=== PATIENT | male | born 1945 ===

== ENCOUNTER 2023-05-18 15:44 | Inpatient (IN) ==
[2023-05-18] MEDS ORDERED: Morphine 2 MG/ML SYRINGE IV PRN (21:15)
[2023-05-18] MEDS ORDERED: Naloxone 0.4 mg VIAL 0.4 mg/ml 1 ml VIAL IV PUSH PRN (21:17)
[2023-05-18] MEDS: Acetaminophen IV 1 GM/100ML 1,000 MG/100 ML BAG IV SCH (21:57)
[2023-05-18] MEDS ORDERED: Heparin 5000 UNITS/ML 1 mL VIAL SUBCUT SCH (22:00)
[2023-05-18] MEDS ORDERED: Lactated Ringers 1000 ml BAG 1,000 ML IV ONE (22:30)
[2023-05-18 22:46] LABS: ABS Basophils 0.1 10^3/uL (0.0-0.1); ABS Eosinophils 0.5 10^3/uL (0.0-0.5); ABS Lymphocytes 2.2 10^3/uL (1.0-4.8); ABS Monocytes 0.7 10^3/uL (0.0-1.1); ABS Neutrophils 3.7 10^3/uL (1.5-7.6); Eosinophil % 6.6 %; Hematocrit 30.7 % (38-53); Lymphocyte % 30.9 %; Mean Corpuscular Hemoglobin 30.2 pg (27-33); Mean Corpuscular Hgb Conc 35.9 g/dL (31-36); Mean Corpuscular Volume 84.1 fL (80-97); Mean Platelet Volume 7.3 fL (7.5-11.2); Platelet Count 182 10^3/uL (150-450); Red Blood Count 3.65 10^6/uL (4.06-5.63); Red Cell Distribution Width 14.7 % (12-17); White Blood Count 7.2 10^3/uL (3.6-10.2)
[2023-05-18 22:51] LABS: INR 1.02 (0.83-1.13)
[2023-05-18 23:02] LABS: Albumin 3.7 g/dL (3.2-5.2); Albumin/Globulin Ratio 1.5 (1-3); C Reactive Protein 6.56 mg/L (<8.01); Calcium 8.6 mg/dL (8.6-10.3); Creatinine, Serum 1.28 mg/dL (0.67-1.17); Globulin 2.5 g/dL (2-4); Potassium 3.7 mmol/L (3.5-5.0); Total Bilirubin 0.4 mg/dL (0.2-1.0); Total Protein 6.2 g/dL (6.4-8.9); eGFR CKD-EPI 56.9 (>60)
[2023-05-19] MEDS ORDERED: Lactated Ringers 1000 ml BAG 1,000 ML IV ONE (00:23)
[2023-05-19] MEDS: Acetaminophen IV 1 GM/100ML 1,000 MG/100 ML BAG IV SCH ×3 (07:00→19:52)
[2023-05-19] MEDS: CMCS: Dorzolamide/Timolol OPTH (NF) 10 ML BOT BOTH EYES SCH ×2 (08:44→21:36)
[2023-05-19] MEDS ORDERED: Dutasteride/Tamsulosin (NF) PO SCH (09:00)
[2023-05-19] MEDS: Polyethylene Glycol 3350 17 GM PACKET PO SCH (09:00)
[2023-05-19] MEDS: Senna TAB 8.6 mg TAB PO SCH (21:33)
[2023-05-19] MEDS: Latanoprost 0.005% 2.5 ml BTL BOTH EYES SCH (21:38)
[2023-05-20] MEDS: Acetaminophen IV 1 GM/100ML 1,000 MG/100 ML BAG IV SCH ×4 (03:08→21:54)
[2023-05-20 06:14] LABS: Hematocrit 34.8 % (38-53); Hemoglobin 12.3 g/dL (13.2-16.3); Mean Corpuscular Hemoglobin 29.3 pg (27-33); Mean Corpuscular Hgb Conc 35.3 g/dL (31-36); Mean Corpuscular Volume 82.8 fL (80-97); Mean Platelet Volume 7.3 fL (7.5-11.2); Platelet Count 218 10^3/uL (150-450); Red Cell Distribution Width 14.5 % (12-17); White Blood Count 7.1 10^3/uL (3.6-10.2)
[2023-05-20 06:18] LABS: INR 1.08 (0.83-1.13)
[2023-05-20 06:41] LABS: Calcium 8.4 mg/dL (8.6-10.3); Potassium 3.2 mmol/L (3.5-5.0); eGFR CKD-EPI 76.6 (>60)
[2023-05-20] MEDS: KCL 20 MEQ/100 ML IVPREMIX 20 MEQ/100 ML BAG IV SCH ×3 (07:46→15:57)
[2023-05-20] MEDS: Polyethylene Glycol 3350 17 GM PACKET PO SCH (08:34)
[2023-05-20] MEDS: CMCS: Dorzolamide/Timolol OPTH (NF) 10 ML BOT BOTH EYES SCH ×2 (08:37→20:36)
[2023-05-20] MEDS ORDERED: ceFAZolin 2 GM PREMIX 2 GM/50 ML BAG ONE (11:48)
[2023-05-20] MEDS ORDERED: Naloxone 0.4 mg VIAL 0.4 mg/ml 1 ml VIAL IV PRN (12:39)
[2023-05-20] MEDS ORDERED: fentaNYL 100 mcg/2 ml 50 MCG/ML VIAL IV PRN (12:39)
[2023-05-20] MEDS ORDERED: Midazolam 2 mg/2 ml VIAL 1 mg/ml 2 ml VIAL (2 mg) ONE (13:00)
[2023-05-20] MEDS ORDERED: fentaNYL 100 mcg/2 ml 50 MCG/ML VIAL ONE ×2 (13:00→14:59)
[2023-05-20] MEDS ORDERED: Propofol 10 MG/ML 20 ML BTL ONE ×2 (13:01→13:02)
[2023-05-20] MEDS ORDERED: Lidocaine 2% PF 5 ML VIAL ONE (13:01)
[2023-05-20] MEDS ORDERED: Rocuronium 50 mg VIAL 10 mg/ml 5 ml VIAL (50 mg) ONE (13:02)
[2023-05-20] MEDS ORDERED: Phenylephrine 40 mcg/mL 10mL (400mcg) SYRINGE ONE (13:26)
[2023-05-20] MEDS ORDERED: Bupivacaine 0.5% SDV PF 30ML VIAL ONE (13:28)
[2023-05-20] MEDS ORDERED: Phenylephrine IV 10 MG/ML 1 ml VIAL ONE (13:36)
[2023-05-20] MEDS ORDERED: Ondansetron 4 mg VIAL 2 MG/ML 2 ml VIAL ONE (13:47)
[2023-05-20 15:05] LABS: Hematocrit 30.8 % (38-53); Hemoglobin 10.8 g/dL (13.2-16.3)
[2023-05-20] MEDS ORDERED: Morphine 2 MG/ML SYRINGE IV PRN (16:21)
[2023-05-20] MEDS ORDERED: Lactated Ringers 1000 ml BAG 500 ML IV ONE (16:30)
[2023-05-20] MEDS ORDERED: Ondansetron 4 mg VIAL 2 MG/ML 2 ml VIAL IV PRN (17:56)
[2023-05-20] MEDS: Latanoprost 0.005% 2.5 ml BTL BOTH EYES SCH (20:36)
[2023-05-20] MEDS: Senna TAB 8.6 mg TAB PO SCH ×2 (20:37→20:40)
[2023-05-20] MEDS: ceFAZolin 1 GM in Dextrose 1 GM/50 ML BAG IVPB SCH (20:45)
[2023-05-20] MEDS: Benzocaine (plain) Lozenge 15 MG MT PRN (21:55)
[2023-05-21] MEDS: Polyethylene Glycol 3350 17 GM PACKET PO SCH ×2 (06:53→08:40)
[2023-05-21] MEDS: ceFAZolin 1 GM in Dextrose 1 GM/50 ML BAG IVPB SCH ×2 (07:17→12:40)
[2023-05-21 07:46] LABS: Hematocrit 29.6 % (38-53); Hemoglobin 10.4 g/dL (13.2-16.3); Platelet Count 204 10^3/uL (150-450)
[2023-05-21 08:03] LABS: Creatinine, Serum 1.4 mg/dL (0.67-1.17); Potassium 4.6 mmol/L (3.5-5.0); eGFR CKD-EPI 51.1 (>60)
[2023-05-21] MEDS: CMCS: Dorzolamide/Timolol OPTH (NF) 10 ML BOT BOTH EYES SCH ×2 (08:50→20:56)
[2023-05-21] MEDS: Enoxaparin 40 MG/0.4 ML SYR SUBCUT SCH (12:10)
[2023-05-21] MEDS: Benzocaine (plain) Lozenge 15 MG MT PRN ×2 (14:36→20:53)
[2023-05-21] MEDS: Latanoprost 0.005% 2.5 ml BTL BOTH EYES SCH (20:56)
[2023-05-21] MEDS: Senna TAB 8.6 mg TAB PO SCH (22:59)
[2023-05-22 06:47] LABS: Hematocrit 27.5 % (38-53); Hemoglobin 9.7 g/dL (13.2-16.3); Mean Platelet Volume 7.4 fL (7.5-11.2); Platelet Count 182 10^3/uL (150-450)
[2023-05-22 07:09] LABS: Calcium 8.1 mg/dL (8.6-10.3); Creatinine, Serum 1.04 mg/dL (0.67-1.17); Potassium 4.6 mmol/L (3.5-5.0)
[2023-05-22] MEDS: CMCS: Dorzolamide/Timolol OPTH (NF) 10 ML BOT BOTH EYES SCH (09:18)
[2023-05-22] MEDS: Polyethylene Glycol 3350 17 GM PACKET PO SCH (09:20)
[2023-05-22 10:20] VITALS: BP 119/69
[2023-05-22] MEDS: Enoxaparin 40 MG/0.4 ML SYR SUBCUT SCH (11:55)
[2023-05-22] MEDS: Benzocaine (plain) Lozenge 15 MG MT PRN (13:53)
== END 2023-05-22 14:28 | disposition home or self-care (01) | DRG 482 ==
LOC: ED 15:44 → SUATTDRO 21:07 → EDHOLD 21:07 → SSU 05-19 15:01
PROVIDERS: ADMIT Hospitalist; ATTEND Internal Medicine